=== PATIENT | male | born 1945 | race African-American/Black ===

== ENCOUNTER 2024-04-27 20:26 | Observation (INO) | payer OTHER ==
[2024-04-27 22:33] LABS: BASO % 0.6 % (0-2.0); HEMATOCRIT 41.7 % (35.4-49); HEMOGLOBIN 13.9 GM/dL (11.7-16.9); LYMPH % 29.7 % (8-40); MCH 31.3 pg (25.7-33.7); MCHC 33.2 g/dl (32.0-35.9); MEAN CELL VOLUME 94.1 fl (80-96); MEAN PLT VOLUME 7.2 fl (7.5-11.1); MONO % 12.8 % (3.8-10.2); NEUT % 55.9 % (42.8-82.8); PLATELET COUNT 233 10^3/uL (134-434); RBC 4.43 M/mm3 (4.00-5.60); RDW 15.4 % (11.9-15.9); WHITE BLOOD COUNT 8.2 K/mm3 (4.0-10.0)
[2024-04-27 22:40] LABS: INR 1.17 (0.83-1.09); PROTHROMBIN TIME (PATIENT) 13.2 SEC (9.7-13.0)
[2024-04-27 22:43] LABS: ACTIVATED PTT 32.8 SECONDS (25.2-36.5)
[2024-04-27 23:01] LABS: POTASSIUM 4.3 mmol/L (3.5-5.1)
[2024-04-27 23:03] LABS: CALCIUM 9.5 mg/dL (8.5-10.1)
[2024-04-27 23:04] LABS: ALBUMIN 4.1 g/dl (3.4-5.0); BLOOD UREA NITROGEN 16.3 mg/dL (7-18)
[2024-04-27 23:07] LABS: CREATININE 0.9 mg/dL (0.55-1.3)
[2024-04-27 23:08] LABS: BILIRUBIN,TOTAL 0.5 mg/dL (0.2-1); TOT PROT 7.6 g/dl (6.4-8.2)
[2024-04-28] MEDS: ASPIRIN COATED 81 MG TABLET.EC PO ONE (00:20)
[2024-04-28] MEDS ORDERED: ASPIRIN 81 MG CHEWABLE TABLETS ONE (00:24)
[2024-04-28] MEDS: ENOXAPARIN NA (PORCINE) 40 MG/0.4 ML DISP.SYRIN SQ ONE (02:01)
[2024-04-28] MEDS ORDERED: ENOXAPARIN NA (PORCINE) 80 MG/0.8 ML DISP.SYRIN SQ ONE (02:02)
[2024-04-28 06:21] LABS: HEMATOCRIT 39.7 % (35.4-49); HEMOGLOBIN 13.2 GM/dL (11.7-16.9); MCH 31.7 pg (25.7-33.7); MCHC 33.1 g/dl (32.0-35.9); MEAN CELL VOLUME 95.7 fl (80-96); MEAN PLT VOLUME 7.8 fl (7.5-11.1); PLATELET COUNT 216 10^3/uL (134-434); RBC 4.15 M/mm3 (4.00-5.60); RDW 15.5 % (11.9-15.9); WHITE BLOOD COUNT 8.5 K/mm3 (4.0-10.0)
[2024-04-28 06:39] LABS: POTASSIUM 4.2 mmol/L (3.5-5.1)
[2024-04-28 06:42] LABS: CALCIUM 9.2 mg/dL (8.5-10.1)
[2024-04-28 06:43] LABS: ALBUMIN 3.8 g/dl (3.4-5.0); BLOOD UREA NITROGEN 13.1 mg/dL (7-18); MAGNESIUM 2.3 mg/dL (1.8-2.4)
[2024-04-28 06:46] LABS: CREATININE 0.8 mg/dL (0.55-1.3); PHOSPHOROUS 3.2 mg/dL (2.5-4.9)
[2024-04-28 06:47] LABS: BILIRUBIN,TOTAL 0.6 mg/dL (0.2-1)
[2024-04-28 06:48] LABS: TOT PROT 6.7 g/dl (6.4-8.2)
[2024-04-28 10:43] VITALS: BMI 26.4
[2024-04-28] MEDS: LIDOCAINE 4% PATCH TP SCH (10:53)
[2024-04-28] MEDS: CLOPIDOGREL BISULFATE 75 MG TABLET (FP) PO SCH (10:54)
[2024-04-28] MEDS: ASPIRIN COATED 81 MG TABLET.EC PO SCH (10:55)
[2024-04-28] MEDS: INSULIN ASPART SLIDING SCALE (NOVOLOG) 1 VIAL SQ SCH (12:49)
[2024-04-28] MEDS: ENOXAPARIN NA (PORCINE) 80 MG/0.8 ML DISP.SYRIN SQ SCH (13:06)
[2024-04-28] MEDS: ATORVASTATIN CA 40 MG TABLET (FP) PO SCH (22:20)
[2024-04-28] MEDS: APIXABAN 5 MG TABLET PO SCH (22:20)
[2024-04-28] MEDS: LIDOCAINE PATCH REMOVAL MC SCH (22:21)
[2024-04-29 06:00] LABS: PH,URINE 6.5 (5.0-8.0); URINE APPEARANCE CLEAR; URINE BILIRUBIN NEGATIVE (NEGATIVE); URINE COLOR YELLOW; URINE GLUCOSE (UA) 2+ (NEGATIVE); URINE KETONE NEGATIVE (NEGATIVE); URINE LEUK ESTERASE NEGATIVE (NEGATIVE); URINE NITRITE NEGATIVE (NEGATIVE); URINE PROTEIN NEGATIVE (NEGATIVE)
[2024-04-29 07:48] LABS: BASO % 0.4 % (0-2.0); EOS % 2.2 % (0-4.5); HEMATOCRIT 39.2 % (35.4-49); HEMOGLOBIN 13.1 GM/dL (11.7-16.9); LYMPH % 43.8 % (8-40); MCH 31.6 pg (25.7-33.7); MCHC 33.4 g/dl (32.0-35.9); MEAN CELL VOLUME 94.5 fl (80-96); MEAN PLT VOLUME 7.7 fl (7.5-11.1); MONO % 13.8 % (3.8-10.2); NEUT % 39.8 % (42.8-82.8); PLATELET COUNT 220 10^3/uL (134-434); RBC 4.15 M/mm3 (4.00-5.60); RDW 15.2 % (11.9-15.9); WHITE BLOOD COUNT 7.3 K/mm3 (4.0-10.0)
[2024-04-29 07:58] LABS: POTASSIUM 4.2 mmol/L (3.5-5.1)
[2024-04-29 08:03] LABS: CALCIUM 9.1 mg/dL (8.5-10.1)
[2024-04-29 08:04] LABS: ALBUMIN 3.5 g/dl (3.4-5.0); BLOOD UREA NITROGEN 15.7 mg/dL (7-18)
[2024-04-29 08:07] LABS: CREATININE 0.8 mg/dL (0.55-1.3)
[2024-04-29 08:08] LABS: BILIRUBIN,TOTAL 0.8 mg/dL (0.2-1); TOT PROT 6.6 g/dl (6.4-8.2)
[2024-04-29] MEDS: ASPIRIN COATED 81 MG TABLET.EC PO SCH (09:58)
[2024-04-29] MEDS ORDERED: METOPROLOL TARTRATE 50 MG TABLET (FP) PO SCH (12:30)
[2024-04-29] MEDS: METOPROLOL TARTRATE 50 MG TABLET (FP) PO SCH (16:20)
[2024-04-30 08:38] LABS: BASO % 0.4 % (0-2.0); EOS % 2.2 % (0-4.5); HEMATOCRIT 37.5 % (35.4-49); HEMOGLOBIN 12.4 GM/dL (11.7-16.9); LYMPH % 45.1 % (8-40); MCH 31.4 pg (25.7-33.7); MCHC 33.1 g/dl (32.0-35.9); MEAN PLT VOLUME 7.9 fl (7.5-11.1); MONO % 15.3 % (3.8-10.2); PLATELET COUNT 210 10^3/uL (134-434); RBC 3.95 M/mm3 (4.00-5.60); RDW 15.3 % (11.9-15.9); WHITE BLOOD COUNT 7.3 K/mm3 (4.0-10.0)
[2024-04-30 08:57] LABS: POTASSIUM 4.4 mmol/L (3.5-5.1)
[2024-04-30 09:00] LABS: ALBUMIN 3.5 g/dl (3.4-5.0); BLOOD UREA NITROGEN 15.9 mg/dL (7-18); CALCIUM 8.9 mg/dL (8.5-10.1)
[2024-04-30 09:04] LABS: CREATININE 0.9 mg/dL (0.55-1.3)
[2024-04-30 09:05] LABS: BILIRUBIN,TOTAL 0.7 mg/dL (0.2-1); TOT PROT 6.1 g/dl (6.4-8.2)
[2024-04-30 10:16] VITALS: RESP 18
[2024-04-30 15:56] VITALS: BP 140/67; PULSE 69; TEMP 98.4
== END 2024-04-30 17:45 | disposition home or self-care (01) ==
LOC: JER 20:26 → UNDOADMOB 04-28 02:50 → JERBED 04-28 02:50 → INTOOBSV 04-28 02:50 → J4W 04-28 10:44 → JERBED 04-28 10:44 → J4W 04-29 09:46
PROVIDERS: ADMIT Internal Medicine; ATTEND Nurse Practitioner Family
PROC: 3E023GC Introduction of Other Therapeutic Substance into Muscle, Percutaneous Approach (ICD-10-PCS; principal; 2024-04-29)
DX: I26.99 Other pulmonary embolism without acute cor pulmonale (principal); E11.9 Type 2 diabetes mellitus without complications; I10 Essential (primary) hypertension; E78.5 Hyperlipidemia, unspecified; I25.10 Atherosclerotic heart disease of native coronary artery without angina pectoris; Z95.1 Presence of aortocoronary bypass graft; C92.11 Chronic myeloid leukemia, BCR/ABL-positive, in remission; Z86.718 Personal history of other venous thrombosis and embolism; Z87.891 Personal history of nicotine dependence
CPT/HCPCS: 36415; 71046-TC-FY; 71275-TC; 80053; 81003; 82962; 83735; 84100; 84484; 85025; 85027; 85610; 85730; 93005; 93010; 93306-TC; 93970-TC; 94761; 96372; 99285-25; G0378